=== PATIENT | male | born 1950 | race Caucasian/White ===

== ENCOUNTER 2016-12-11 11:13 | Outpatient (CLI) | payer OTHER ==
[~2016-12-11 11:13] MED LIST: ELAVIL10 MG PO; LISINOPRIL10 MG PO; LORAZEPAM1 MG PO; PRILOSEC20 MG PO
[2017-01-12] MEDS ORDERED: LIPITOR80 MG PO (09:20)
[2017-01-12] MEDS ORDERED: SOTALOL HCL120 MG PO (09:27)
[2017-01-12] MEDS ORDERED: NORCO1 TA1 PO (09:29)
[2017-01-12] MEDS ORDERED: COUMADIN5 MG PO (09:51)
[2017-01-12] MEDS ORDERED: AMBIEN5 MG PO (11:00)
== END 2016-12-11 23:00 ==
LOC: LAB SRH 11:13
DX: L97.909 Non-pressure chronic ulcer of unspecified part of unspecified lower leg with unspecified severity (principal)
CPT/HCPCS: 90074; 90100; 95059

== ENCOUNTER 2017-01-14 05:53 | Day surgery (SDC) | payer OTHER ==
--- NOTE | 2017-01-05 15:14 | HISTORY AND PHYSICAL ---
ADMITTED: 01/14/2017 CHIEF COMPLAINT: 1. Open wound of right lower extremity HISTORY OF PRESENT ILLNESS: The patient is a 66-year-old man who injured himself in a fall. He was on Coumadin and developed a large, tense hematoma which resulted in overlying skin necrosis. This was evacuated and debrided, and the patient has been treated both with both a VAC and open dressing management. He has continued to granulate and fill in the wound and is now coming in for split-thickness skin graft. MEDICAL/SURGICAL HISTORY: Medical history includes idiopathic cardiac arrest, perhaps ischemic myopathy, which was a witnessed arrest, from which he was successfully resuscitated. He suffered a CVA and now has an implantable cardioverter- defibrillator in place. He is on warfarin for paroxysmal atrial fibrillation. The patient's past surgery includes percutaneous angioplasty of the heart. He has also had pacemaker placement. MEDICATIONS: 1. Atorvastatin 80 mg daily. 2. Sotalol 80 mg 1-1/2 tabs p.o. b.i.d. 3. Cephalexin 500 mg b.i.d. for 14 days, which he now completed. 4. Hydrocodone/acetaminophen p.r.n. 5. Zolpidem 10 mg at bedtime. 6. Gentamicin topical ointment, which is now stopped. ALLERGIES: 1. NONE KNOWN TO MEDICATIONS. SOCIAL HISTORY: The patient continues to work. 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 The patient does not currently smoke cigarettes. FAMILY HISTORY: Without hereditary diseases. REVIEW OF SYSTEMS: Pt has no additional problems other than his current active wound including HEENT problems, visual disturbance, sinus problems, chest pain, productive cough or hemoptysis, abdominal or GI disturbances, dysuria, acute new neurologic disturbances. PHYSICAL EXAMINATION: GENERAL: The patient is alert and cooperative. HEENT: His ears and nose demonstrate no gross external lesions. Eyes are equal. He is anicteric. NECK: Without palpable mass or thyromegaly. VITAL SIGNS: Height is 73 inches, weight 205, temperature 97.7, pulse 71, respirations 16, blood pressure 166/81. NECK: Without palpable masses or bruits. CHEST: Clear to auscultation. HEART: Regular, without murmur or gallop. There is a palpable pacemaker in the left anterior chest. ABDOMEN: Soft, without localized tenderness or organomegaly. EXTREMITIES: A right pretibial 10.5 x 5.5 cm wound filled with red granulation as well as several streaks of remaining nonvascularized subcutaneous tissue, which are to be debrided off today. There is no surrounding cellulitis. There is no purulent discharge. IMPRESSION: 1. Traumatic wound of right anterior gordon PLAN: I recommend the patient undergo a split-thickness skin graft. I explained to him the nature of this procedure as well as the potential alternatives, benefits and risks. The patient is aware that risks of this procedure include infections, bleeding, scarring, pain, damage to local structures, nontake of skin graft, and others. He would like to proceed with the graft as described to him.
[~2017-01-14] VITALS: Ht 185.4 cm; Wt 93.0 kg
[~2017-01-14 05:53] MED LIST changes: +AMBIEN5 MG PO; +COUMADIN5 MG PO; +LIPITOR80 MG PO; +NORCO1 TA1 PO; +SOTALOL HCL120 MG PO
[2017-01-14] MEDS ORDERED: NORCO1 TA1 PO (09:20)
--- NOTE | 2017-01-14 09:21 | Provider's Discharge Care Plan ---
Problem, Goal, Plan Problem List 1. Status post skin graft
--- NOTE | 2017-01-14 09:21 | Provider's Discharge Care Plan ---
Problem, Goal, Plan Problem List 1. Status post skin graft
[2017-01-14 10:36] VITALS: BP 130/95
--- NOTE | 2017-01-14 10:58 | OPERATIVE REPORT ---
DATE OF SURGERY: 01/14/2017 SURGEON: Leon Garcia MD PREOPERATIVE DIAGNOSIS: 1. Open wound of right lower extremity POSTOPERATIVE DIAGNOSIS: 1. Open wound of right lower extremity PROCEDURE PERFORMED: 1. Split-thickness skin graft to right lower extremity (10.5 x 5 cm). ANESTHESIA: Total IV general. INDICATIONS: The patient is a 66-year-old man with a previous hematoma of the right leg when he was on anticoagulants. This resulted in full-thickness skin necrosis. SURGICAL TECHNIQUE: The patient was taken to the operating room, where a general anesthetic was administered and the patient prepped and draped in the usual sterile fashion. A local anesthetic of 0.5% Marcaine with epinephrine was also used at the skin graft harvest site. The wound was measured at 10.5 x 5 cm. A similar size piece of skin was harvested with an electrically driven dermatome set at 1.6. The graft was meshed at a 1.5:1 ratio, but not expanded when set into place. It was set into place and seemed to adhere very nicely. Therefore, it was secured with Steri-Strips and Mastisol and covered with a compression wrap consisting of initially a single layer of Adaptic gauze, plain gauze soaked in mineral oil and local anesthetic, plain absorbent gauze over this and a sterile Kerlix wrap covered with an elastic Atul bandage dressing. The donor site was treated with a membrane dressing. The patient left in good condition and no intraoperative complications were encountered. He was given instructions to avoid ambulation and to elevate the leg with a minimum of 3 days a sedentary life, followed by a full week of avoidance of prolonged standing and excessive movement or trauma to this area. The patient left in good condition.
== END 2017-01-14 11:07 | disposition home or self-care (01) ==
LOC: OR SRH 05:53 → SCU SRH 06:34 → OR SRH 07:30
PROVIDERS: Surgery
PROC: 0HRKX74 Replacement of Right Lower Leg Skin with Autologous Tissue Substitute, Partial Thickness, External Approach (ICD-10-PCS; principal; 2017-01-14 07:30)
DX: L97.211 Non-pressure chronic ulcer of right calf limited to breakdown of skin (principal); Z79.01 Long term (current) use of anticoagulants; Z95.810 Presence of automatic (implantable) cardiac defibrillator; Z98.61 Coronary angioplasty status; I48.91 Unspecified atrial fibrillation
CPT/HCPCS: 29229; 29240; 50004; 60001; 70002; 80124; 80575; 81797; 82210